=== PATIENT | female | born 1970 | race American Indian/Alaskan Native ===

== ENCOUNTER 2019-02-19 07:01 | Emergency (ER) | payer BC ==
--- NOTE | 2019-02-19 09:47 | XRay Report ---
CHEST 2 VIEWS INDICATION: MAIN: cough, sob, cp FOR 3 WEEKS. COMPARISON: None. FINDINGS: Support devices: None. Heart: Within normal limits. Lungs/Pleura: No acute air space or interstitial disease. No significant pleural effusion. IMPRESSION: No acute findings. Signer Name: Prakash Joe MD Signed: 02/19/2019 9:42 AM Workstation Name: [id number]
--- NOTE | 2019-02-19 09:55 | Emergency Department Report ---
ED General Adult HPI - General Chief complaint: Upper Respiratory Infection Stated complaint: CHEST PAIN/COURTNEY/COUGH Time Seen by Provider: 02/19/19 08:49 Source: patient Mode of arrival: Ambulatory Limitations: No Limitations - History of Present Illness Initial comments: Patient is a 48-year-old female presents emergency room with complaints of a dry cough that began 3 weeks ago. She states that the cough wakes her up at night. She states that she also has shortness of breath when she lays to one side. Patient states that she has also had intermittent palpitations and chest discomfort. Patient states that she had flulike symptoms approximately 3 weeks ago which resolved except for the dry cough. She denies any fever, vomiting, diarrhea, leg swelling, recent travel, recent surgery, hormone use. She states that she has been taking Robitussin and using honey and tea but continues to have dry cough. pt states she is concerned because her father has CHF. She has past medical history of GERD. She denies any allergies medications. She states her last menstrual cycle was 01/25/2019 and she has the essure placed. - Related Data Previous Rx's Medication Instructions Recorded Last Taken Type EPINEPHrine [Epipen 2-Sergio] 0.3 mg IJ ONCE PRN #1 pack 09/06/13 Unknown Rx hydrOXYzine HCL [Atarax] 25 mg PO Q6HR PRN #20 tablet 09/06/13 Unknown Rx predniSONE [Deltasone] 50 mg PO QDAY #5 tab 09/06/13 Unknown Rx Famotidine [Pepcid] 20 mg PO BID #28 tablet 12/08/14 Unknown Rx Omeprazole [PriLOSEC] 20 mg PO QDAY #28 capsule. 12/08/14 Unknown Rx Benzonatate [Tessalon Perles] 100 mg PO Q8HR PRN #20 capsule 02/19/19 Unknown Rx Cetirizine HCl [ZyrTEC 10mg cap] 10 mg PO DAILY #14 capsule 02/19/19 Unknown Rx D-Methorphan Hb/Prometh Oral 5 ml PO QHS PRN #70 ml 02/19/19 Unknown Rx [Phenergam Dm 6.25/15 mg Oral Liqd] Fluticasone [Flonase] 1 spray NS QDAY #1 bottle 02/19/19 Unknown Rx Allergies Allergy/AdvReac Type Severity Reaction Status Date / Time peanut Allergy Shortness Verified 09/06/13 19:26 of Breath pork derived (porcine) Allergy Unknown Verified 09/06/13 19:26 venom-honey bee Allergy Shortness Verified 09/06/13 19:28 [bee venom (honey bee)] of Breath ED Review of Systems ROS: Stated complaint: CHEST PAIN/COURTNEY/COUGH Other details as noted in HPI Comment: All other systems reviewed and negative ED Past Medical Hx - Past Medical History Previous Medical History?: Yes Hx GERD: Yes Additional medical history: hyperlipidemia, uterus fibroid, GERD, anemia - Surgical History Past Surgical History?: Yes Additional Surgical History: tonsillectomy - Social History Smoking Status: Never Smoker Substance Use Type: None - Medications Home Medications: Home Medications Medication Instructions Recorded Confirmed Last Taken Type EPINEPHrine [Epipen 2-Sergio] 0.3 mg IJ ONCE PRN #1 pack 09/06/13 Unknown Rx hydrOXYzine HCL [Atarax] 25 mg PO Q6HR PRN #20 tablet 09/06/13 Unknown Rx predniSONE [Deltasone] 50 mg PO QDAY #5 tab 09/06/13 Unknown Rx Famotidine [Pepcid] 20 mg PO BID #28 tablet 12/08/14 Unknown Rx Omeprazole [PriLOSEC] 20 mg PO QDAY #28 capsule.dr 12/08/14 Unknown Rx Benzonatate [Tessalon Perles] 100 mg PO Q8HR PRN #20 capsule 02/19/19 Unknown Rx Cetirizine HCl [ZyrTEC 10mg cap] 10 mg PO DAILY #14 capsule 02/19/19 Unknown Rx D-Methorphan Hb/Prometh Oral 5 ml PO QHS PRN #70 ml 02/19/19 Unknown Rx [Phenergam Dm 6.25/15 mg Oral Liqd] Fluticasone [Flonase] 1 spray NS QDAY #1 bottle 02/19/19 Unknown Rx ED Physical Exam - General Limitations: No Limitations General appearance: alert, in no apparent distress - Head Head exam: Present: atraumatic, normocephalic - Eye Eye exam: Present: normal appearance - ENT ENT exam: Present: normal orophraynx, mucous membranes moist, TM's normal bilaterally, normal external ear exam, other (pale boggy turbinates) - Respiratory Respiratory exam: Present: normal lung sounds bilaterally. Absent: respiratory distress, wheezes, rales, rhonchi, stridor, chest wall tenderness, accessory muscle use, decreased breath sounds, prolonged expiratory - Cardiovascular Cardiovascular Exam: Present: regular rate, normal rhythm, normal heart sounds. Absent: systolic murmur, diastolic murmur, rubs, gallop - Extremities Exam Extremities exam: Absent: pedal edema - Neurological Exam Neurological exam: Present: alert, oriented X3 - Psychiatric Psychiatric exam: Present: normal affect, normal mood - Skin Skin exam: Present: warm, dry, intact ED Course Vital Signs 02/19/19 02/19/19 07:10 10:44 Temperature 98.1 F Pulse Rate 68 Respiratory 20 15 Rate Blood Pressure 136/80 O2 Sat by Pulse 99 Oximetry ED Medical Decision Making - Lab Data Result diagrams: 02/19/19 09:36 02/19/19 09:36 Lab Results 02/19/19 02/19/19 02/19/19 Range/Units 09:36 09:36 09:36 WBC 10.9 (4.5-11.0) K/mm3 RBC 3.55 L (3.65-5.03) M/mm3 Hgb 11.4 (10.1-14.3) gm/dl Hct 33.9 (30.3-42.9) % MCV 95 (79-97) fl MCH 32 (28-32) pg MCHC 34 (30-34) % RDW 13.3 (13.2-15.2) % Plt Count 226 (140-440) K/mm3 Lymph % (Auto) 19.7 (13.4-35.0) % [place] % (Auto) 6.5 (0.0-7.3) % Eos % (Auto) 0.5 (0.0-4.3) % Baso % (Auto) 0.3 (0.0-1.8) % Lymph # 2.1 (1.2-5.4) K/mm3 [place] # 0.7 (0.0-0.8) K/mm3 Eos # 0.0 (0.0-0.4) K/mm3 Baso # 0.0 (0.0-0.1) K/mm3 Seg Neutrophils % 73.0 H (40.0-70.0) % Seg Neutrophils # 7.9 H (1.8-7.7) K/mm3 PT 12.8 (12.2-14.9) Sec. INR 0.95 (0.87-1.13) APTT 29.6 (24.2-36.6) Sec. D-Dimer (0-234) ng/mlDDU Sodium 135 L (137-145) mmol/L Potassium 3.8 (3.6-5.0) mmol/L Chloride 100.5 (98-107) mmol/L Carbon Dioxide 22 (22-30) mmol/L Anion Gap 16 mmol/L BUN 6 L (7-17) mg/dL Creatinine 0.4 L (0.7-1.2) mg/dL Estimated GFR > 60 ml/min BUN/Creatinine Ratio 15 % Glucose 88 (65-100) mg/dL Calcium 9.0 (8.4-10.2) mg/dL Phosphorus (2.5-4.5) mg/dL Magnesium (1.7-2.3) mg/dL Total Bilirubin 0.20 (0.1-1.2) mg/dL AST 17 (5-40) units/L ALT 13 (7-56) units/L Alkaline Phosphatase 88 (35-129) units/L Troponin T < 0.010 (0.00-0.029) ng/mL NT-Pro-B Natriuret Pep (0-450) pg/mL Total Protein 7.7 (6.3-8.2) g/dL Albumin 4.1 (3.9-5) g/dL Albumin/Globulin Ratio 1.1 % TSH (0.270-4.200) mlU/mL 02/19/19 02/19/19 02/19/19 Range/Units 09:36 09:36 12:08 WBC (4.5-11.0) K/mm3 RBC (3.65-5.03) M/mm3 Hgb (10.1-14.3) gm/dl Hct (30.3-42.9) % MCV (79-97) fl MCH (28-32) pg MCHC (30-34) % RDW (13.2-15.2) % Plt Count (140-440) K/mm3 Lymph % (Auto) (13.4-35.0) % [place] % (Auto) (0.0-7.3) % Eos % (Auto) (0.0-4.3) % Baso % (Auto) (0.0-1.8) % Lymph # (1.2-5.4) K/mm3 [place] # (0.0-0.8) K/mm3 Eos # (0.0-0.4) K/mm3 Baso # (0.0-0.1) K/mm3 Seg Neutrophils % (40.0-70.0) % Seg Neutrophils # (1.8-7.7) K/mm3 PT (12.2-14.9) Sec. INR (0.87-1.13) APTT (24.2-36.6) Sec. D-Dimer 425.45 H (0-234) ng/mlDDU Sodium (137-145) mmol/L Potassium (3.6-5.0) mmol/L Chloride (98-107) mmol/L Carbon Dioxide (22-30) mmol/L Anion Gap mmol/L BUN (7-17) mg/dL Creatinine (0.7-1.2) mg/dL Estimated GFR ml/min BUN/Creatinine Ratio % Glucose (65-100) mg/dL Calcium (8.4-10.2) mg/dL Phosphorus 2.90 (2.5-4.5) mg/dL Magnesium 1.90 (1.7-2.3) mg/dL Total Bilirubin (0.1-1.2) mg/dL AST (5-40) units/L ALT (7-56) units/L Alkaline Phosphatase (35-129) units/L Troponin T (0.00-0.029) ng/mL NT-Pro-B Natriuret Pep 38.15 (0-450) pg/mL Total Protein (6.3-8.2) g/dL Albumin (3.9-5) g/dL Albumin/Globulin Ratio % TSH 2.750 (0.270-4.200) mlU/mL 02/19/19 Range/Units 12:25 WBC (4.5-11.0) K/mm3 RBC (3.65-5.03) M/mm3 Hgb (10.1-14.3) gm/dl Hct (30.3-42.9) % MCV (79-97) fl MCH (28-32) pg MCHC (30-34) % RDW (13.2-15.2) % Plt Count (140-440) K/mm3 Lymph % (Auto) (13.4-35.0) % [place] % (Auto) (0.0-7.3) % Eos % (Auto) (0.0-4.3) % Baso % (Auto) (0.0-1.8) % Lymph # (1.2-5.4) K/mm3 [place] # (0.0-0.8) K/mm3 Eos # (0.0-0.4) K/mm3 Baso # (0.0-0.1) K/mm3 Seg Neutrophils % (40.0-70.0) % Seg Neutrophils # (1.8-7.7) K/mm3 PT (12.2-14.9) Sec. INR (0.87-1.13) APTT (24.2-36.6) Sec. D-Dimer (0-234) ng/mlDDU Sodium (137-145) mmol/L Potassium (3.6-5.0) mmol/L Chloride (98-107) mmol/L Carbon Dioxide (22-30) mmol/L Anion Gap mmol/L BUN (7-17) mg/dL Creatinine (0.7-1.2) mg/dL Estimated GFR ml/min BUN/Creatinine Ratio % Glucose (65-100) mg/dL Calcium (8.4-10.2) mg/dL Phosphorus (2.5-4.5) mg/dL Magnesium (1.7-2.3) mg/dL Total Bilirubin (0.1-1.2) mg/dL AST (5-40) units/L ALT (7-56) units/L Alkaline Phosphatase (35-129) units/L Troponin T < 0.010 (0.00-0.029) ng/mL NT-Pro-B Natriuret Pep (0-450) pg/mL Total Protein (6.3-8.2) g/dL Albumin (3.9-5) g/dL Albumin/Globulin Ratio % TSH (0.270-4.200) mlU/mL - EKG Data EKG shows normal: sinus rhythm, axis, intervals, QRS complexes, ST-T waves Rate: bradycardia - Radiology Data Radiology results: report reviewed CXR no acute findings chest CTA no CT evidence of PE, no acute findings - Medical Decision Making Patient is a 48-year-old female presents emergency room with complaints of a dry cough that began 3 weeks ago. She states that the cough wakes her up at night. She states that she also has shortness of breath when she lays to one side. Patient states that she has also had intermittent palpitations and chest discomfort. Patient states that she had flulike symptoms approximately 3 weeks ago which resolved except for the dry cough. She denies any fever, vomiting, diarrhea, leg swelling, recent travel, recent surgery, hormone use. She states that she has been taking Robitussin and using honey and tea but continues to have dry cough. pt states she is concerned because her father has CHF. She has past medical history of GERD. She denies any allergies medications. She states her last menstrual cycle was 01/25/2019 and she has the essure placed. vitals are normal. on exam pale boggy turbinates otherwise normal. pt give tessalon perles which improved her cough. labs are stable, troponin negative x2, BNP is normal. CXR with no acute process. EKG with sinus carla. Discussed case with Fallon Reyes who recommended doing a d-dimer even though the patient is PERC criteria negative. D-dimer elevated. CTA chest shows no acute process, no PE. HEATH score is 0, heart score is 2, low risk for cardiac event, will have pt follow up with a switch repairer. Cough worse at night could be related to her acid reflux versus allergies. Patient given prescription for Tessalon Perles, cough syrup, Zyrtec, Flonase. Advised patient to please take medication as prescribed. Follow-up with a primary care doctor and a switch repairer in the next 2-3 days. Return to the emergency room for any new or worsening symptoms. - Differential Diagnosis URI, PNA, CHF, pleural effusion, pericarditis, allergies, GERD, PE Critical care attestation.: If time is entered above; I have spent that time in minutes in the direct care of this critically ill patient, excluding procedure time. ED Disposition Clinical Impression: Cough, SOB (shortness of breath), Atypical chest pain Disposition: DC-01 TO HOME OR SELFCARE Is pt being admited?: No Does the pt Need Aspirin: No Condition: Stable Instructions: Chest Pain (ED), Chronic Cough (ED), Allergies (ED) Additional Instructions: Please take medication as prescribed. Follow-up with a primary care doctor and a switch repairer in the next 2-3 days. Return to the emergency room for any new or worsening symptoms. Prescriptions: D-Methorphan Hb/Prometh Oral [Phenergam Dm 6.25/15 mg Oral Liqd] 5 ml PO QHS PRN #70 ml PRN Reason: cough Fluticasone [Flonase] 1 spray NS QDAY #1 bottle Benzonatate [Tessalon Perles] 100 mg PO Q8HR PRN #20 capsule PRN Reason: cough Cetirizine HCl [ZyrTEC 10mg cap] 10 mg PO DAILY #14 capsule Referrals: JEFF MORA MD [Staff Physician] - 2-3 Days [facility] [Outside] - 2-3 Days [facility] [Outside] - 2-3 Days RISSA ARRIAZA MD [Staff Physician] - 2-3 Days Time of Disposition: 14:53 Print Language: MACEDONIAN
[2019-02-19 10:20] LABS: Basophils % (Auto) 0.3 % (0.0-1.8); Eosinophils % (Auto) 0.5 % (0.0-4.3); Hematocrit 33.9 % (30.3-42.9); Hemoglobin 11.4 gm/dl (10.1-14.3); Lymphocytes # (Auto) 2.1 K/mm3 (1.2-5.4); Lymphocytes % (Auto) 19.7 % (13.4-35.0); Mean Corpuscular HGB Conc 34 % (30-34); Mean Corpuscular Volume 95 fl (79-97); Monocytes # (Auto) 0.7 K/mm3 (0.0-0.8); Monocytes % (Auto) 6.5 % (0.0-7.3); Platelet Count 226 K/mm3 (140-440); Red Blood Count 3.55 M/mm3 (3.65-5.03); Red Cell Distribution Width 13.3 % (13.2-15.2)
[2019-02-19 10:30] LABS: INR 0.95 (0.87-1.13)
[2019-02-19 10:31] LABS: Alanine Aminotransferase 13 units/L (7-56); Albumin 4.1 g/dL (3.9-5); BUN/Creatinine Ratio 15; Blood Urea Nitrogen 6 mg/dL (7-17); Hemolysis Index 33; Partial Thromboplastin Time 29.6 Sec. (24.2-36.6)
[2019-02-19] MEDS ORDERED: BENZONATATE 100 MG CAP PO ONE (10:33)
--- NOTE | 2019-02-19 14:45 | Cat Scan Report ---
CTA CHEST WITH IV CONTRAST INDICATION / CLINICAL INFORMATION: cough, sob, cp, elevated d-dimer. TECHNIQUE: Axial CT images were obtained through the chest after injection of 100 mL Omnipaque 350 IV contrast. 3 plane MIP and/or 3D reconstructions were produced. All CT scans at this location are performed usin g CT dose reduction for ALARA by means of automated exposure control. COMPARISON: Same-day chest radiograph FINDINGS: PULMONARY ARTERIES: No pulmonary emboli. THORACIC AORTA: No significant abnormality. HEART: No significant abnormality. PLEURA: No pleural effusion. No pneumothorax. LYMPH NODES: No adenopathy. LUNGS: No acute air space or interstitial disease. ADDITIONAL FINDINGS: None. UPPER ABDOMEN: No acute findings. SKELETAL STRUCTURES: No significant osseous abnormality. IMPRESSION: 1. No CT evidence for pulmonary embolism. 2. No acute findings. Signer Name: Will Ruiz MD Signed: 02/19/2019 2:41 PM Workstation Name: [id number]
[2019-02-19 16:35] VITALS: BP 138/58
== END 2019-02-19 15:16 | disposition home or self-care (01) ==
LOC: ED 07:01
DX: R05 Cough (principal); R07.89 Other chest pain; R06.02 Shortness of breath; K21.9 Gastro-esophageal reflux disease without esophagitis; Z90.89 Acquired absence of other organs; Z86.2 Personal history of diseases of the blood and blood-forming organs and certain disorders involving the immune mechanism; Z79.899 Other long term (current) drug therapy; Z91.030 Bee allergy status; Z91.010 Allergy to peanuts; Z91.018 Allergy to other foods
CPT/HCPCS: 36415; 71046; 71275; 80053; 83735; 83880; 84100; 84443; 84484; 85025; 85379; 85610; 85730; 93005; 93010; 99285; Q9967